=== PATIENT | female | born 1930 | race African-American/Black ===

== ENCOUNTER 2017-04-08 19:38 | Inpatient (IN) | payer MEDICARE, BC ==
[~2017-04-08] VITALS: Ht 154.9 cm; Wt 55.2 kg
[~2017-04-08 19:38] MED LIST: DIPH-654 PO; MIRALAX PO; UNK BP MED
[2017-04-08] MEDS ORDERED: MORPHINE SULFATE 2 MG/ML SYRINGE IVP ONE (20:00)
[2017-04-08] MEDS ORDERED: ONDANSETRON HCL 4 MG/2 ML VIAL IVP ONE (20:00)
[2017-04-08] MEDS ORDERED: SODIUM CHLORIDE 0.9% 1,000 ML IV ONE (20:00)
[2017-04-08 20:18] LABS: BASOPHILS % (AUTO) 0.5 % (0.0-2.0); EOSINOPHILS % (AUTO) 0.1 % (1.0-6.0); HEMATOCRIT 42.1 % (36-46); HEMOGLOBIN 13.9 g/dL (12.0-16.0); LYMPHOCYTES # (AUTO) 2.3 K/uL (1.0-4.8); LYMPHOCYTES % (AUTO) 19.7 % (22.0-44.0); MEAN CORPUSCULAR HEMOGLOBIN 30.6 pg (26.0-34.0); MEAN CORPUSCULAR HGB CONC 32.9 G/dL (31.0-37.0); MEAN CORPUSCULAR VOLUME 93 fL (80-100); MONOCYTES # (AUTO) 0.1 K/uL (0.1-1.0); MONOCYTES % (AUTO) 1.3 % (2.0-9.0); NEUTROPHILS % (AUTO) 78.4 % (40.0-70.0); PLATELET COUNT (AUTO) 185 K/uL (150-450); RED BLOOD CELL COUNT(AUTO) 4.53 MIL/uL (4.00-5.20); RED CELL DISTRIBUTION WIDTH 14.7 % (11.5-14.5); WHITE BLOOD COUNT (AUTO) 11.5 K/uL (4.5-11.0)
[2017-04-08 20:48] LABS: ANION GAP 10 mmol/L (8-16); CALCIUM, TOTAL 9.7 mg/dL (8.8-10.5); CARBON DIOXIDE 28 mmol/L (22-29); CHLORIDE 105 mmol/L (98-107); CREATININE 1.14 mg/dL (0.60-1.30); GLOMERULAR FILTR. RATE CALC 55 mL/min (>60); POTASSIUM 3.9 mmol/L (3.5-5.1); SODIUM SERUM 143 mmol/L (136-145); UREA NITROGEN, BLOOD 20 mg/dL (7-18)
[2017-04-08 20:54] LABS: ALANINE AMINOTRANSFERASE 16 U/L (12-78); ALBUMIN 3.7 g/dL (3.4-5.0); ASPARTATE AMINOTRANSFERASE 26 U/L (15-37); BILIRUBIN,TOTAL 0.4 mg/dL (0.1-1.0); TOTAL PROTEIN, SERUM 7.4 g/dL (6.4-8.2)
[2017-04-08 20:55] LABS: APPEARANCE,URINE CLOUDY (CLEAR); GLUCOSE, URINE (UA) NEGATIVE (NEGATIVE); KETONES,URINE NEGATIVE (NEGATIVE); LEUKOCYTE ESTERASE ,URINE SMALL (NEGATIVE); OCCULT BLOOD,URINE SMALL (NEGATIVE); PROTEIN,URINE POS 1+ (NEGATIVE)
[2017-04-08 20:56] LABS: ADD UA MICROSCOPIC YES
[2017-04-08 20:58] LABS: SQUAMOUS EPITHELIAL CELL,UR Moderate /LPF (None Seen)
[2017-04-08 21:13] LABS: LACTIC ACID 2.2 mmol/L (0.4-2.0)
[2017-04-08] MEDS ORDERED: CIPROFLOXACIN 400 MG/D5% WATER 200 ML IV ONE (21:30)
[2017-04-08] MEDS ORDERED: MetroNIDAZOLE 500 MG/NACL 100 ML IV ONE (21:30)
[2017-04-08] MEDS ORDERED: ALBUTEROL SULFATE 2.5 MG/0.5 ML NEB SOLUTION NEB PRN (21:45)
[2017-04-08] MEDS ORDERED: MORPHINE SULFATE 4 MG/ML SYRINGE IVP PRN (21:45)
[2017-04-08] MEDS ORDERED: MAGNESIUM HYDROXIDE SUSPENSION 30 ML UDCUP PO PRN (21:45)
[2017-04-08 22:13] LABS: REFLEX LACTIC ACID? YES YES
[2017-04-08] MEDS: MetroNIDAZOLE 500 MG/NACL 100 ML IV SCH (22:31)
[2017-04-08] MEDS: SODIUM CHLORIDE 0.45% 1,000 ML IV SCH (23:17)
[2017-04-09] MEDS: ACETAMINOPHEN 325 MG TABLET PO PRN ×2 (03:53→14:56)
[2017-04-09] MEDS: MetroNIDAZOLE 500 MG/NACL 100 ML IV SCH ×2 (06:03→14:57)
[2017-04-09 08:12] LABS: BASOPHILS # (AUTO) 0.02 K/uL (0.00-0.20); BASOPHILS % (AUTO) 0.1 % (0.0-2.0); EOSINOPHILS % (AUTO) 0 % (1.0-6.0); HEMOGLOBIN 11.1 g/dL (12.0-16.0); LYMPHOCYTES # (AUTO) 0.6 K/uL (1.0-4.8); LYMPHOCYTES % (AUTO) 3.8 % (22.0-44.0); MEAN CORPUSCULAR HEMOGLOBIN 30.3 pg (26.0-34.0); MEAN CORPUSCULAR HGB CONC 32.6 G/dL (31.0-37.0); MEAN CORPUSCULAR VOLUME 93 fL (80-100); MONOCYTES % (AUTO) 5.9 % (2.0-9.0); NEUTROPHILS # (AUTO) 14.7 K/uL (1.8-7.7); PLATELET COUNT (AUTO) 149 K/uL (150-450); RED BLOOD CELL COUNT(AUTO) 3.66 MIL/uL (4.00-5.20); RED CELL DISTRIBUTION WIDTH 14.5 % (11.5-14.5); WHITE BLOOD COUNT (AUTO) 16.3 K/uL (4.5-11.0)
[2017-04-09 08:15] LABS: NEUTROPHILS % (AUTO) 90.2 % (40.0-70.0)
[2017-04-09 08:18] LABS: CALCIUM, TOTAL 8.1 mg/dL (8.8-10.5); CREATININE 1.11 mg/dL (0.60-1.30); POTASSIUM 3.9 mmol/L (3.5-5.1)
[2017-04-09] MEDS ORDERED: DOCUSATE SODIUM 100 MG CAPSULE PO SCH (09:00)
[2017-04-09] MEDS ORDERED: SODIUM CHLORIDE 0.9% 500 ML IV ONE (09:15)
[2017-04-09] MEDS: PANTOPRAZOLE SODIUM 40 MG/VIAL IVP SCH (09:30)
[2017-04-09] MEDS: HEPARIN SODIUM,PORCINE 5,000 UNITS/ML VIAL SQ SCH ×2 (09:30→22:21)
[2017-04-09] MEDS: CIPROFLOXACIN 400 MG/D5% WATER 200 ML IV SCH ×2 (10:22→22:21)
[2017-04-09 11:51] VITALS: BP 112/72
[2017-04-09] MEDS: SODIUM CHLORIDE 0.45% 1,000 ML IV SCH (14:57)
[2017-04-09 15:51] VITALS: BP 116/60
[2017-04-09] MEDS: OxyCODONE HCL/ACETAMINOPHEN 5-325 MG TABLET PO PRN (17:52)
[2017-04-09 20:18] VITALS: BP 112/49
[2017-04-09 23:42] VITALS: BP 138/52
[2017-04-10] MEDS: MetroNIDAZOLE 500 MG/NACL 100 ML IV SCH ×4 (00:11→22:40)
[2017-04-10 04:26] VITALS: BP 113/56
[2017-04-10] MEDS: OxyCODONE HCL/ACETAMINOPHEN 5-325 MG TABLET PO PRN ×3 (04:30→20:07)
[2017-04-10 07:22] VITALS: BP 129/58
[2017-04-10] MEDS: SODIUM CHLORIDE 0.45% 1,000 ML IV SCH (08:58)
[2017-04-10] MEDS: PANTOPRAZOLE SODIUM 40 MG/VIAL IVP SCH (08:59)
[2017-04-10] MEDS: HEPARIN SODIUM,PORCINE 5,000 UNITS/ML VIAL SQ SCH ×2 (08:59→20:06)
[2017-04-10 11:26] VITALS: BP 125/53
[2017-04-10] MEDS: CIPROFLOXACIN 400 MG/D5% WATER 200 ML IV SCH ×2 (11:36→23:48)
[2017-04-10 15:39] VITALS: BP 136/68
[2017-04-10 19:16] VITALS: BP 134/81
[2017-04-10] MEDS: LACTOBACILLUS ACIDOPHILUS/BULGARICUS GRANULES PACKET PO SCH (20:06)
[2017-04-10 23:20] VITALS: BP 126/70
[2017-04-11 04:29] VITALS: BP 133/74
[2017-04-11] MEDS: MetroNIDAZOLE 500 MG/NACL 100 ML IV SCH ×3 (05:29→22:00)
[2017-04-11 07:29] VITALS: BP 137/73
[2017-04-11] MEDS: LACTOBACILLUS ACIDOPHILUS/BULGARICUS GRANULES PACKET PO SCH ×2 (09:00→16:00)
[2017-04-11] MEDS ORDERED: MULTIVITAMINS WITH MINERALS, THERAPEUTIC TABLET PO ONE (09:00)
[2017-04-11] MEDS: PANTOPRAZOLE SODIUM 40 MG/VIAL IVP SCH (09:22)
[2017-04-11] MEDS: HEPARIN SODIUM,PORCINE 5,000 UNITS/ML VIAL SQ SCH ×2 (09:23→21:16)
[2017-04-11 10:06] LABS: BASOPHILS % (AUTO) 0.2 % (0.0-2.0); EOSINOPHILS % (AUTO) 0 % (1.0-6.0); HEMOGLOBIN 11.6 g/dL (12.0-16.0); LYMPHOCYTES # (AUTO) 1.6 K/uL (1.0-4.8); LYMPHOCYTES % (AUTO) 19.6 % (22.0-44.0); MEAN CORPUSCULAR HEMOGLOBIN 30.6 pg (26.0-34.0); MEAN CORPUSCULAR HGB CONC 33.3 G/dL (31.0-37.0); MEAN CORPUSCULAR VOLUME 92 fL (80-100); MONOCYTES # (AUTO) 0.8 K/uL (0.1-1.0); MONOCYTES % (AUTO) 9.5 % (2.0-9.0); NEUTROPHILS # (AUTO) 5.9 K/uL (1.8-7.7); NEUTROPHILS % (AUTO) 70.7 % (40.0-70.0); PLATELET COUNT (AUTO) 166 K/uL (150-450); RED CELL DISTRIBUTION WIDTH 14.8 % (11.5-14.5); WHITE BLOOD COUNT (AUTO) 8.3 K/uL (4.5-11.0)
[2017-04-11 11:08] VITALS: BP 159/87
[2017-04-11] MEDS: CIPROFLOXACIN 400 MG/D5% WATER 200 ML IV SCH ×2 (11:26→22:00)
[2017-04-11 16:06] VITALS: BP 150/66
[2017-04-11] MEDS: SODIUM CHLORIDE 0.45% 1,000 ML IV SCH ×2 (16:40)
[2017-04-11 19:32] VITALS: BP 128/79
[2017-04-12] VITALS (7 sets, daily range): BP systolic 129–149; BP diastolic 65–88
[2017-04-12] MEDS: MetroNIDAZOLE 500 MG/NACL 100 ML IV SCH ×3 (05:30→21:06)
[2017-04-12] MEDS: PANTOPRAZOLE SODIUM 40 MG/VIAL IVP SCH (08:48)
[2017-04-12] MEDS: HEPARIN SODIUM,PORCINE 5,000 UNITS/ML VIAL SQ SCH ×3 (09:00→20:58)
[2017-04-12] MEDS: PANTOPRAZOLE SODIUM 40 MG DR TABLET PO SCH (09:05)
[2017-04-12] MEDS: SODIUM CHLORIDE 0.45% 1,000 ML IV SCH ×2 (09:20→20:58)
[2017-04-12] MEDS: CIPROFLOXACIN 400 MG/D5% WATER 200 ML IV SCH ×2 (10:00→23:09)
[2017-04-12] MEDS ORDERED: THYR60TA2 PO (18:33)
[2017-04-13 05:06] VITALS: BP 135/78
[2017-04-13] MEDS: MetroNIDAZOLE 500 MG/NACL 100 ML IV SCH (05:47)
[2017-04-13] MEDS ORDERED: THYROID 30 MG TABLET PO SCH (06:30)
[2017-04-13 07:08] VITALS: BP 125/68
[2017-04-13] MEDS: PANTOPRAZOLE SODIUM 40 MG DR TABLET PO SCH (08:44)
[2017-04-13] MEDS: CIPROFLOXACIN 400 MG/D5% WATER 200 ML IV SCH (08:44)
[2017-04-13] MEDS: HEPARIN SODIUM,PORCINE 5,000 UNITS/ML VIAL SQ SCH (08:45)
[2017-04-13] MEDS ORDERED: MULTIVITAMINS WITH MINERALS, THERAPEUTIC TABLET PO SCH (09:00)
[2017-04-13] MEDS ORDERED: CIPR-279 PO (10:14)
[2017-04-13] MEDS ORDERED: METR250T PO (10:15)
== END 2017-04-13 11:55 | disposition home or self-care (01) | DRG 871 ==
LOC: EMS 19:39 → 5N 04-09 10:30
PROVIDERS: ADMIT Internal Medicine; ATTEND Internal Medicine
DX: A41.9 Sepsis, unspecified organism (principal); E43 Unspecified severe protein-calorie malnutrition; E87.2 Acidosis; N39.0 Urinary tract infection, site not specified; D64.9 Anemia, unspecified; H91.90 Unspecified hearing loss, unspecified ear; I10 Essential (primary) hypertension; J45.909 Unspecified asthma, uncomplicated; K52.9 Noninfective gastroenteritis and colitis, unspecified; Z68.23 Body mass index [BMI] 23.0-23.9, adult; Z88.6 Allergy status to analgesic agent; Z88.0 Allergy status to penicillin; Z88.2 Allergy status to sulfonamides; Z90.710 Acquired absence of both cervix and uterus; I71.4 Abdominal aortic aneurysm, without rupture
CPT/HCPCS: 51702; 74176; 83605; 87040; 87086; 87324; 87449; 93005; 93970; 96361; 96365; 96366; 96372; 96375; 97162; 97530; 99285; C9113; J0744; J1644; J2270; J2405; J3490; J7030; J7040